=== PATIENT | male | born 2000 | race Caucasian/White ===

== ENCOUNTER 2020-01-01 23:55 | Emergency (ER) | payer BC ==
[~2020-01-01] VITALS: Ht 188 cm; Wt 68.2 kg
[2020-01-02 01:02] LABS: TRICYCLIC ANTIDEPRESS URINE NEGATIVE
[2020-01-02 02:20] VITALS: BP 127/71; PULSE 85; TEMP 98.8
== END 2020-01-02 02:30 | disposition home or self-care (01) ==
LOC: COL.ER 23:55
PROVIDERS: Emergency Medicine
DX: F10.129 Alcohol abuse with intoxication, unspecified (principal); Y90.7 Blood alcohol level of 200-239 mg/100 ml
CPT/HCPCS: J2060; J7030